=== PATIENT | female | born 1945 ===

== ENCOUNTER 2023-09-08 06:18 | Day surgery (SDC) | payer OTHER ==
[2023-09-08] MEDS ORDERED: ONDANSETRON HCL 2 MG/ML VIAL IV ONE (11:00)
[2023-09-08] MEDS ORDERED: fentaNYL CITRATE 50 MCG/ML AMPUL IV PUSH ONE (11:00)
[2023-09-08] MEDS ORDERED: MIDAZOLAM HCL 2 MG/2 ML VIAL IV ONE (11:00)
[2023-09-08] MEDS ORDERED: DIPHENHYDRAMINE HCL 50 MG/ML VIAL 1ML IV ONE (11:00)
== END 2023-09-08 12:15 | disposition home or self-care (01) ==
LOC: AMB-ENDOS 06:18
PROVIDERS: ATTEND Colon & Rectal Surgery
DX: C18.7 Malignant neoplasm of sigmoid colon (principal)

== ENCOUNTER 2024-10-09 07:15 | Inpatient (IN) | payer OTHER ==
[~2024-10-09] VITALS: Ht 162.6 cm; Wt 56.7 kg
[2024-10-09] MEDS ORDERED: LOSARTAN-HCTZ1 EAC1 PO (08:44)
[2024-10-09] MEDS ORDERED: DILTIAZEM ER90 MG PO (08:45)
[2024-10-09] MEDS ORDERED: LANTUS SOL100 UNIT/1 (08:45)
[2024-10-09] MEDS ORDERED: SYNJARDY 5-5001 EACH PO (08:46)
[2024-10-09 08:47] VITALS: BP 150/75
[2024-10-09 09:28] LABS: INR 0.99
[2024-10-09 10:46] LABS: RH POSITIVE
[2024-10-13] MEDS ORDERED: METRONIDAZOLE/SODIUM CHLORIDE 500 MG/100 ML PIGGYBACK IV ONE (09:05)
[2024-10-13] MEDS ORDERED: CEFTRIAXONE SODIUM 2,000 MG VIAL ONE (09:05)
[2024-10-13] MEDS ORDERED: BUPIVACAINE HCL/MPF 0.5% 30ML VIAL ONE (10:37)
[2024-10-13] MEDS ORDERED: LIDOCAINE HCL 1%/EPINEPHRINE 20ML VIAL IJ ONE (10:37)
[2024-10-13] MEDS ORDERED: POVIDONE-IODINE 118 ML BOTT TOP ONE (11:44)
[2024-10-13] MEDS ORDERED: VISTASEAL DUAL APPICATOR 1 EACH APPL TOP ONE (19:17)
[2024-10-13] MEDS ORDERED: THROMBIN,HU/FIBRINOGEN/CALCIUM 10 ML SYRINGE TOP ONE (19:18)
[2024-10-13] MEDS ORDERED: DEXTROSE 50 % IN WATER 0.5 G/ML VIAL IV PRN (22:15)
[2024-10-13] MEDS ORDERED: MORPHINE SULFATE 4 MG/ML VIAL IV PRN (22:15)
[2024-10-13] MEDS ORDERED: ONDANSETRON HCL 2 MG/ML VIAL IV PRN (22:15)
[2024-10-13] MEDS ORDERED: RINGERS SOLUTION,LACTATED 1,000 ML IV SCH (22:15)
[2024-10-13 22:30] VITALS: BP 142/68; O2SAT 100
[2024-10-13 23:30] VITALS: BP 142/68; O2SAT 100
[2024-10-14] VITALS (13 sets, daily range): BP systolic 145–190; BP diastolic 66–94; O2SAT 100
[2024-10-14 01:15] LABS: BASO % 0.2 % (0.1-1.2); EOS # 0.00 (0.04-0.54); EOS % 0.0 % (0.7-7.0); LYMPH # 0.36 (1.18-3.74); LYMPH % 3.4 % (19.3-53.1); MEAN PLATELET VOLUME 9.10 fl (9.4-12.4); MONO # 0.70 (0.24-0.82); MONO % 6.6 % (4.7-12.5); NEUT # 9.44 (1.56-6.13); NEUT % 89.1 % (34.0-71.1); RED CELL DISTRIBUTION WIDTH 13.4 % (11.6-14.4)
[2024-10-14 01:30] LABS: BUN CREA RATIO 20.0 (7.0-25.0); CREATININE SERUM 0.79 mg/dL (0.55-1.02); GFR 70.02; OSMOLALITY SERUM 294.0 MOSM/KG (275-295)
[2024-10-14 01:37] LABS: GLUCOSE FASTING 307.0 mg/dL (65-100)
[2024-10-14 02:12] LABS: ABG PH 7.292 (7.35-7.45); ABG PO2 450.2 mmHg (80-100); BICARBONATE 20.0 mmol/l (23-25)
[2024-10-14] MEDS ORDERED: ENALAPRILAT DIHYDRATE 1.25 MG/ML VIAL IV ONE (02:19)
[2024-10-14] MEDS ORDERED: ENALAPRILAT DIHYDRATE 1.25 MG/ML VIAL IV PRN (02:30)
[2024-10-14] MEDS ORDERED: PROPOFOL 100 ML IV SCH (02:30)
[2024-10-14] MEDS ORDERED: PROPOFOL 10,000 MCG/ML VIAL IV ONE (05:19)
[2024-10-14 06:41] LABS: o2 100 %
[2024-10-14] MEDS ORDERED: MORPHINE SULFATE 2 MG/ML CARTRIDGE IV PRN (08:15)
[2024-10-14 08:34] LABS: ABG PH 7.335 (7.35-7.45); ABG PO2 251.0 mmHg (80-100); BICARBONATE 21.9 mmol/l (23-25); o2 100 %
[2024-10-14] MEDS ORDERED: POLYVINYL ALCOHOL 15 ML DROPS OP SCH (09:00)
[2024-10-14] MEDS ORDERED: LOSARTAN/HYDROCHLOROTHIAZIDE 1 UDTAB TABLET PO SCH (09:00)
[2024-10-14] MEDS ORDERED: CHLORHEXIDINE GLUCONATE 15ML BRUSH KIT MM SCH (09:00)
[2024-10-14] MEDS ORDERED: FAMOTIDINE/PF 20 MG/2 ML VIAL IV PUSH SCH (09:00)
[2024-10-14] MEDS ORDERED: DEXTROSE 50 % IN WATER 0.5 G/ML VIAL IV PRN (10:00)
[2024-10-14] MEDS ORDERED: INSULIN LISPRO 1,000 UNIT/10 ML UNITS SUBCUTANEO PRN (10:00)
[2024-10-14] MEDS ORDERED: MAGNESIUM SULFATE IN WATER 50 ML IV NR (11:30)
[2024-10-14] MEDS ORDERED: ENOXAPARIN SODIUM 40 MG/0.4 ML SYRINGE SUBCUTANEO SCH (17:00)
[2024-10-14 19:30] LABS: ABG PH 7.388 (7.35-7.45); ABG PO2 113.8 mmHg (80-100); BICARBONATE 24.5 mmol/l (23-25)
[2024-10-14 19:31] LABS: o2 50 %
[2024-10-15 04:12] VITALS: BP 161/73; O2SAT 100
[2024-10-15 07:28] VITALS: BP 163/73; O2SAT 98
[2024-10-15 07:55] LABS: BASO % 0.1 % (0.1-1.2); EOS # 0.01 (0.04-0.54); EOS % 0.1 % (0.7-7.0); LYMPH # 0.60 (1.18-3.74); LYMPH % 5.8 % (19.3-53.1); MEAN PLATELET VOLUME 9.70 fl (9.4-12.4); MONO # 0.93 (0.24-0.82); MONO % 9.0 % (4.7-12.5); NEUT # 8.71 (1.56-6.13); NEUT % 84.6 % (34.0-71.1); RED CELL DISTRIBUTION WIDTH 13.6 % (11.6-14.4)
[2024-10-15 08:08] LABS: BUN CREA RATIO 20.0 (7.0-25.0); CREATININE SERUM 0.5 mg/dL (0.55-1.02); GFR 118.71; GLUCOSE FASTING 174.0 mg/dL (65-100); OSMOLALITY SERUM 286.0 MOSM/KG (275-295)
[2024-10-15] MEDS ORDERED: POTASSIUM PHOS,M-BASIC-D-BASIC 3 MM/ML VIAL IV NR (11:00)
[2024-10-15 12:00] VITALS: BP 129/76; O2SAT 100
[2024-10-15 15:13] VITALS: BP 134/60; O2SAT 100
[2024-10-15 20:00] VITALS: BP 125/56; O2SAT 100
[2024-10-15] MEDS ORDERED: DILTIAZEM HCL 90 MG TABLET PO SCH (21:00)
[2024-10-15] MEDS ORDERED: POTASSIUM PHOS,M-BASIC-D-BASIC 9 MM in 0.9 % SODIUM CHLORIDE 250 ML IV ONE (21:30)
[2024-10-15 23:18] VITALS: BP 99/55; O2SAT 100
[2024-10-16 04:00] VITALS: O2SAT 100
[2024-10-16 06:51] LABS: BASO % 0.4 % (0.1-1.2); EOS # 0.13 (0.04-0.54); EOS % 1.8 % (0.7-7.0); LYMPH # 0.57 (1.18-3.74); LYMPH % 7.9 % (19.3-53.1); MEAN PLATELET VOLUME 9.50 fl (9.4-12.4); MONO # 0.62 (0.24-0.82); MONO % 8.6 % (4.7-12.5); NEUT # 5.83 (1.56-6.13); NEUT % 80.6 % (34.0-71.1); RED CELL DISTRIBUTION WIDTH 13.9 % (11.6-14.4)
[2024-10-16] MEDS ORDERED: ACETAMINOPHEN 500 MG GEL..CAP PO STA (06:51)
[2024-10-16] MEDS ORDERED: OxyCODONE HCL 5 MG TABLET (ROXICODONE) PO PRN (07:00)
[2024-10-16] MEDS ORDERED: ACETAMINOPHEN 500 MG GEL..CAP PO PRN (07:00)
[2024-10-16 07:14] LABS: BUN CREA RATIO 22.0 (7.0-25.0); CREATININE SERUM 0.58 mg/dL (0.55-1.02); GFR 100.02; OSMOLALITY SERUM 289.0 MOSM/KG (275-295)
[2024-10-16 07:15] LABS: GLUCOSE FASTING 206.0 mg/dL (65-100)
[2024-10-16 07:46] VITALS: BP 119/52; O2SAT 100
[2024-10-16 08:00] VITALS: BP 155/68; O2SAT 98
[2024-10-16] MEDS ORDERED: NAPH,MB-DB/K PH,MBDB 1 PKT PACKET PO SCH (09:00)
[2024-10-16] MEDS ORDERED: LACTOBACILLUS ACIDOPHILUS 1 CAP CAP PO SCH (09:00)
[2024-10-16] MEDS ORDERED: MAGNESIUM CHLORIDE 70 MG TABLET.DR PO SCH (09:00)
[2024-10-16 17:09] VITALS: BP 163/68; O2SAT 94
[2024-10-17 00:16] VITALS: BP 122/59; O2SAT 96
[2024-10-17 06:51] LABS: BASO % 0.4 % (0.1-1.2); EOS # 0.22 (0.04-0.54); EOS % 3.9 % (0.7-7.0); LYMPH # 0.40 (1.18-3.74); LYMPH % 7.0 % (19.3-53.1); MEAN PLATELET VOLUME 9.70 fl (9.4-12.4); MONO # 0.64 (0.24-0.82); MONO % 11.3 % (4.7-12.5); NEUT # 4.36 (1.56-6.13); NEUT % 76.7 % (34.0-71.1); RED CELL DISTRIBUTION WIDTH 13.5 % (11.6-14.4)
[2024-10-17 07:21] LABS: BUN CREA RATIO 31.0 (7.0-25.0); CREATININE SERUM 0.51 mg/dL (0.55-1.02); GFR 116.03; OSMOLALITY SERUM 292.0 MOSM/KG (275-295)
[2024-10-17 07:22] LABS: GLUCOSE FASTING 230.0 mg/dL (65-100)
[2024-10-17 08:00] VITALS: BP 128/69; O2SAT 97
[2024-10-17] MEDS ORDERED: POTASSIUM PHOS,M-BASIC-D-BASIC 15 MM in 0.9 % SODIUM CHLORIDE 250 ML IV ONE (12:00)
[2024-10-17 16:00] VITALS: BP 143/80; O2SAT 97
[2024-10-18 00:50] VITALS: BP 121/70; O2SAT 98
[2024-10-18 07:15] LABS: BASO % 0.7 % (0.1-1.2); EOS # 0.30 (0.04-0.54); EOS % 7.2 % (0.7-7.0); LYMPH # 0.58 (1.18-3.74); LYMPH % 13.8 % (19.3-53.1); MEAN PLATELET VOLUME 9.50 fl (9.4-12.4); MONO # 0.70 (0.24-0.82); NEUT # 2.51 (1.56-6.13); NEUT % 59.9 % (34.0-71.1); RED CELL DISTRIBUTION WIDTH 13.4 % (11.6-14.4)
[2024-10-18 07:21] LABS: MONO % 16.7 % (4.7-12.5)
[2024-10-18 07:55] LABS: BUN CREA RATIO 26.0 (7.0-25.0); CREATININE SERUM 0.61 mg/dL (0.55-1.02); GFR 94.37; OSMOLALITY SERUM 288.0 MOSM/KG (275-295)
[2024-10-18 07:56] LABS: GLUCOSE FASTING 234.0 mg/dL (65-100)
[2024-10-18 08:00] VITALS: BP 120/76; O2SAT 98
[2024-10-18] MEDS ORDERED: NAPH,MB-DB/K PH,MBDB 1 PKT PACKET PO SCH (09:00)
[2024-10-18] MEDS ORDERED: OxyCODONE HCL 5 MG TABLET (ROXICODONE) PO PRN (10:45)
[2024-10-18] MEDS ORDERED: MAGNESIUM SULFATE IN WATER 2 GM/50 ML PIGGYBAG IV NR (11:00)
[2024-10-18 16:00] VITALS: BP 137/64; O2SAT 95
[2024-10-19 01:43] VITALS: BP 110/68; O2SAT 96
[2024-10-19 06:14] LABS: BASO % 0.7 % (0.1-1.2); EOS # 0.22 (0.04-0.54); EOS % 5.0 % (0.7-7.0); LYMPH # 0.54 (1.18-3.74); LYMPH % 12.3 % (19.3-53.1); MEAN PLATELET VOLUME 9.40 fl (9.4-12.4); MONO # 0.62 (0.24-0.82); NEUT # 2.83 (1.56-6.13); NEUT % 64.5 % (34.0-71.1); RED CELL DISTRIBUTION WIDTH 13.3 % (11.6-14.4)
[2024-10-19 06:38] LABS: MONO % 14.1 % (4.7-12.5)
[2024-10-19 07:07] LABS: BUN CREA RATIO 26.0 (7.0-25.0); CREATININE SERUM 0.65 mg/dL (0.55-1.02); GFR 87.7; GLUCOSE FASTING 281.0 mg/dL (65-100); OSMOLALITY SERUM 289.0 MOSM/KG (275-295)
[2024-10-19 08:00] VITALS: BP 136/69; O2SAT 95
== END 2024-10-19 13:36 | disposition home or self-care (01) | DRG 329 ==
LOC: SURH 10-13 07:15 → ICU 10-13 08:30 → O/R 10-13 08:30 → SURH 10-13 10:00 → O/R 10-13 13:35 → SURG 10-13 19:20 → O/R 10-13 21:32 → ICU 10-13 23:49 → SURH 10-16 09:56
PROVIDERS: Internal Medicine; Internal Medicine Geriatric Medicine; Urology; ADMIT Colon & Rectal Surgery; ATTEND Colon & Rectal Surgery
PROC: 0DTP4ZZ Resection of Rectum, Percutaneous Endoscopic Approach (ICD-10-PCS; 2024-10-13)
PROC: 0DTN4ZZ Resection of Sigmoid Colon, Percutaneous Endoscopic Approach (ICD-10-PCS; 2024-10-13)
PROC: 07BB4ZZ Excision of Mesenteric Lymphatic, Percutaneous Endoscopic Approach (ICD-10-PCS; 2024-10-13)
PROC: 0DJD8ZZ Inspection of Lower Intestinal Tract, Via Natural or Artificial Opening Endoscopic (ICD-10-PCS; 2024-10-13)
PROC: 0T9880Z Drainage of Bilateral Ureters with Drainage Device, Via Natural or Artificial Opening Endoscopic (ICD-10-PCS; 2024-10-13)
PROC: 5A1935Z Respiratory Ventilation, Less than 24 Consecutive Hours (ICD-10-PCS; 2024-10-13)
PROC: 0BH17EZ Insertion of Endotracheal Airway into Trachea, Via Natural or Artificial Opening (ICD-10-PCS; 2024-10-13)
PROC: 0D1B4Z4 Bypass Ileum to Cutaneous, Percutaneous Endoscopic Approach (ICD-10-PCS; principal; 2024-10-13 10:00)
PROC: 07BC4ZZ Excision of Pelvis Lymphatic, Percutaneous Endoscopic Approach (ICD-10-PCS; 2024-10-13 10:00)
DX: C20 Malignant neoplasm of rectum (principal); J95.821 Acute postprocedural respiratory failure; K63.5 Polyp of colon; R59.0 Localized enlarged lymph nodes; K66.0 Peritoneal adhesions (postprocedural) (postinfection); D49.0 Neoplasm of unspecified behavior of digestive system; N81.10 Cystocele, unspecified; E11.40 Type 2 diabetes mellitus with diabetic neuropathy, unspecified; Z43.2 Encounter for attention to ileostomy; Z92.21 Personal history of antineoplastic chemotherapy; Z79.4 Long term (current) use of insulin